=== PATIENT | female | born 1955 | race African-American/Black ===

== ENCOUNTER 2020-10-21 09:58 | Outpatient (REF) | payer OTHER, SELFPAY | END 2020-10-21 09:59 | disposition home or self-care (01) | LOC: HO.LAB 09:58 | PROVIDERS: Visit Provider Internal Medicine | DX: Z20.822 Contact with and (suspected) exposure to COVID-19 (principal) | CPT/HCPCS: 36415; C9803; U0003; U0005 ==

== ENCOUNTER 2021-07-16 14:22 | Outpatient (REF) | payer OTHER, SELFPAY ==
--- NOTE | ~2021-07-16 | XR_ITS ---
EXAMINATION: RIGHT HAND AND FOREARM X-RAYS CLINICAL INFORMATION: Pain COMPARISON: None TECHNIQUE: 3 views of the right hand and 2 views of the right forearm FINDINGS: Right hand: No fracture or dislocation is seen. There is slight slight flexion at the PIP joint of the fifth finger. There is borderline widening of the scapholunate joint. There is ulnar minus areas of the wrist. There are mild degenerative changes at the first PENITENTIARY joint and radiocarpal joint. Soft tissues are unremarkable.. Right forearm: Bone alignment is normal. No fracture or dislocation is seen. Soft tissues are normal. XR/XR forearm RT 2V IMPRESSION: Right hand: Degenerative changes at the wrist and ulnar minus variance. Flexion of the PIP joint of the fifth finger. Right forearm: Unremarkable exam.
--- NOTE | ~2021-07-16 | XR_ITS ---
EXAMINATION: RIGHT HAND AND FOREARM X-RAYS CLINICAL INFORMATION: Pain COMPARISON: None TECHNIQUE: 3 views of the right hand and 2 views of the right forearm FINDINGS: Right hand: No fracture or dislocation is seen. There is slight slight flexion at the PIP joint of the fifth finger. There is borderline widening of the scapholunate joint. There is ulnar minus areas of the wrist. There are mild degenerative changes at the first FCI joint and radiocarpal joint. Soft tissues are unremarkable.. Right forearm: Bone alignment is normal. No fracture or dislocation is seen. Soft tissues are normal. XR/XR hand RT 2V IMPRESSION: Right hand: Degenerative changes at the wrist and ulnar minus variance. Flexion of the PIP joint of the fifth finger. Right forearm: Unremarkable exam.
--- NOTE | ~2021-07-16 | US_ITS ---
EXAMINATION: US VENOUS WITH DOPPLER UPPER EXTREMITY, RIGHT CLINICAL INFORMATION: Pain COMPARISON: None TECHNIQUE: Ultrasound of the upper extremity is performed using compression sonography and color and pulse Doppler flow with assessment of augmentation of flow. There is also imaging and Doppler assessment of the jugular and subclavian veins. Spectral analysis with color-flow imaging is performed. FINDINGS: The right internal jugular, subclavian, axillary, brachial, basilic veins and radial and ulnar veins in the forearm are patent. There is no evidence of DVT. US/US venous duplex UE RT IMPRESSION: No DVT demonstrated in the right upper extremity
== END 2021-07-16 14:23 | disposition home or self-care (01) ==
LOC: HO.XRAY 14:22
PROVIDERS: PCP Internal Medicine Medical Oncology; Visit Provider Internal Medicine Medical Oncology
DX: I82.409 Acute embolism and thrombosis of unspecified deep veins of unspecified lower extremity (principal); M79.603 Pain in arm, unspecified; M79.643 Pain in unspecified hand
CPT/HCPCS: 73090; 73120; 93971

== ENCOUNTER 2024-12-27 10:55 | Outpatient (REF) | payer OTHER, SELFPAY ==
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
[2024-12-27 12:18] LABS: MANUAL DIFF FLAG NO
[2024-12-27 12:33] LABS: Basophils Percent Auto 0.6 % (0-2); Eosinophils Percent Auto 0.4 % (0-4); Hematocrit 36.1 % (37.0-47.0); Hemoglobin 12.1 g/dl (12.0-16.0); Imm Gran Abs Auto 0.01 X10*3/uL (0.00-0.03); Imm Gran Pct Auto 0.2 % (0.0-0.4); Lymphocytes Absolute Auto 2.1 X10*3/uL (1.2-4.9); Lymphocytes Percent Auto 41.6 % (20-40); Mean Corpuscular HGB Conc 33.5 g/dl (31.0-35.0); Mean Corpuscular Hemoglobin 31.9 pg (27.0-33.0); Mean Corpuscular Volume 95.3 fL (80.0-98.0); Monocytes Absolute Auto 0.3 X10*3/uL (0.1-1.2); Monocytes Percent Auto 5.6 % (2-11); Neutrophils Absolute Auto 2.6 x10*3/uL (2.0-8.3); Neutrophils Percent Auto 51.6 % (45-73); Platelet Count 209 X10*3/uL (160-400); Red Blood Count 3.79 X10*6/uL (4.20-5.50); Red Cell Distribution Width 17.2 % (11.0-16.0)
[2024-12-27 13:16] LABS: Folate 4.3 ng/mL (> or = 4.0); Vitamin B12 422 pg/mL (200-900)
[2024-12-27 14:19] LABS: Alanine Aminotransferase 25 U/L (0-31); Albumin Level 4.4 g/dL (3.5-5.0); Alkaline Phosphatase 121 U/L (39-117); Anion Gap 21 (12-20); Aspartate Amino Transferase 64 U/L (5-31); Bilirubin Total 0.5 mg/dL (0.0-1.0); Blood Urea Nitrogen 25 mg/dL (9-16); Calcium 8.7 mg/dL (8.4-10.2); Carbon Dioxide 26 mmol/L (22-29); Chloride 103 mmol/L (96-108); Estimated Glomerular Filt Rate > 60; Glucose Random 44 mg/dL (60-115); Magnesium 1.5 mg/dL (1.6-2.6); Potassium 4.3 mmol/L (3.3-5.1); Sodium 146 mmol/L (135-145); Total Protein 7.3 g/dL (6.5-8.0)
[2024-12-27 14:35] LABS: Vitamin D 25-OH Total 11.5 ng/mL (>30)
== END 2024-12-27 10:56 | disposition home or self-care (01) ==
LOC: HO.10HDL 10:55
PROVIDERS: Visit Provider Internal Medicine Medical Oncology
DX: D53.9 Nutritional anemia, unspecified (principal); M62.81 Muscle weakness (generalized); E55.9 Vitamin D deficiency, unspecified; R53.83 Other fatigue; E78.5 Hyperlipidemia, unspecified
CPT/HCPCS: 36415; 80053; 82306; 82607; 82746; 83735; 85025

== ENCOUNTER 2025-01-03 07:38 | Outpatient (REF) | payer OTHER, SELFPAY ==
--- NOTE | ~2025-01-03 | CT_ITS ---
CLINICAL HISTORY: HEREDIATARY ATAXIA, CT head without contrast Comparison: 01/02/2019 Findings: No intra-axial mass, midline shift, hydrocephalus, or acute hemorrhage. No significant atrophy-like change or white matter disease. The visualized paranasal sinuses and mastoid air cells are normal (except for small right frontal sinus polyp/retention cyst). No acute orbital finding. No skull fracture. Severe bilateral TM joint osteoarthritis. IMPRESSION: 1. No acute intracranial findings. This document has been electronically signed by: Judit Israel MD on 01/03/2025 11:52:26
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
== END 2025-01-03 07:39 | disposition home or self-care (01) ==
LOC: HO.CT 07:38
PROVIDERS: PCP Internal Medicine Medical Oncology; Visit Provider Internal Medicine Medical Oncology
DX: G11.9 Hereditary ataxia, unspecified (principal)
CPT/HCPCS: 70450

== ENCOUNTER → 2025-01-03 07:41 | Outpatient (BNV) | payer OTHER, SELFPAY | PROVIDERS: PCP Internal Medicine Medical Oncology; Visit Provider Radiology Diagnostic Radiology | DX: G11.9 Hereditary ataxia, unspecified (principal) | CPT/HCPCS: 70450 ==